=== PATIENT | female | born 1980 | race African-American/Black ===

== ENCOUNTER 2020-04-15 10:43 | Emergency (ER) | payer OTHER ==
[~2020-04-15] VITALS: Ht 170.2 cm; Wt 109.4 kg
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
[2020-04-15] MEDS ORDERED: ORPHENADRINE CITRATE 60 MG/2 ML VIAL. IM ONE (12:30)
[2020-04-15] MEDS ORDERED: KETOROLAC 30 MG/ML VIAL. IM ONE (12:30)
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
[2020-04-15] MEDS ORDERED: ORPHENADRINE CITRATE 60 MG/2 ML VIAL. IV ONE (13:00)
[2020-04-15] MEDS ORDERED: IV NORMAL SALINE 1,000ML 1,000 ML IV ONE (13:00)
[2020-04-15] MEDS ORDERED: KETOROLAC 15 MG/ML VIAL. IVP ONE (13:00)
[2020-04-15 13:11] LABS: BASO % 1 % (0-3); EOS % 1 % (0-3); HEMATOCRIT 39.1 % (36.0-47.0); HEMOGLOBIN 12.9 g/dL (12.0-15.5); LYMPH # 1.1 x10^3/uL (1.0-4.8); LYMPH % 18 % (24-48); MEAN CORPUSCULAR HEMOGLOBIN 30 pg (25-35); MEAN CORPUSCULAR HGB CONC 33 g/dL (31-37); MEAN CORPUSCULAR VOLUME 91 fL (79-100); MONO # 0.5 x10^3/uL (0.0-1.1); MONO % 8 % (0-9); NEUT # 4.6 x10^3uL (1.8-7.7); NEUT % 73 % (31-73); PLATELET COUNT 406 x10^3/uL (140-400); RED BLOOD COUNT 4.28 x10^6/uL (3.50-5.40); RED CELL DISTRIBUTION WIDTH 13.2 % (11.5-14.5); WHITE BLOOD COUNT 6.4 x10^3/uL (4.0-11.0)
[2020-04-15] MEDS ORDERED: CONTRAST GIVEN. MC PRN (13:15)
[2020-04-15] MEDS ORDERED: IOHEXOL 300 MG/ML 75 ML VIAL. IV ONE (13:15)
[2020-04-15 13:18] LABS: CALCIUM 9.1 mg/dL (8.5-10.1); CREATININE 0.7 mg/dL (0.6-1.0); GFR 112.7
[2020-04-15 13:24] LABS: ALBUMIN 3.6 g/dL (3.4-5.0); ALBUMIN/GLOBULIN RATIO 0.8 (1.0-1.7); MAGNESIUM 2.2 mg/dL (1.8-2.4); TOTAL BILIRUBIN 0.2 mg/dL (0.2-1.0); TOTAL PROTEIN 8.4 g/dL (6.4-8.2)
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
[2020-04-15] MEDS ORDERED: AZIT250T6 PO (14:51)
[2020-04-15] MEDS ORDERED: ORPH-16 PO (14:51)
[2020-04-15] MEDS ORDERED: OXYC1TAB15 PO (14:51)
[2020-04-15] MEDS ORDERED: oxyCODONE/APAP 5/325 1 TAB TABLET PO ONE (15:00)
[2020-04-15 15:01] VITALS: BP 158/95
== END 2020-04-15 15:15 | disposition home or self-care (01) ==
LOC: ER 10:43
DX: S16.1XXA Strain of muscle, fascia and tendon at neck level, initial encounter (principal); S29.012A Strain of muscle and tendon of back wall of thorax, initial encounter; J98.4 Other disorders of lung; I10 Essential (primary) hypertension; F17.210 Nicotine dependence, cigarettes, uncomplicated; M25.562 Pain in left knee; M25.561 Pain in right knee; Z20.828 Contact with and (suspected) exposure to other viral communicable diseases; V43.62XA Car passenger injured in collision with other type car in traffic accident, initial encounter; Y93.89 Activity, other specified; Y92.89 Other specified places as the place of occurrence of the external cause; Y99.8 Other external cause status
CPT/HCPCS: 36415; 70450; 71260; 72125; 72128; 73562; 80053; 83735; 85025; 96361; 96374; 96375; 99285; C9803; J1885; J2360; J7030; Q9967; U0003

== ENCOUNTER 2021-09-24 07:00 | Emergency (ER) | payer SELFPAY ==
[~2021-09-24] VITALS: Ht 170.2 cm; Wt 107.5 kg
[~2021-09-24 07:00] MED LIST: AZIT250T6 PO; ORPH-16 PO; OXYC1TAB15 PO
[2021-09-24] MEDS ORDERED: IV NORMAL SALINE 1,000ML 1,000 ML IV SCH (07:30)
--- NOTE | 2021-09-24 07:39 | PHYS DOC ---
Past History Past Medical History: Depression, Hypertension Past Surgical History: Other Additional Past Surgical Histo: Breast reduction Smoking: Less than 1pk/day Alcohol Use: Rarely Drug Use: Methamphetamine Adult General Chief Complaint Chief Complaint: CHEST PAIN HPI HPI Patient is a 41 year old female who presents with complaint of chest pain. The patient states her symptoms started 3 days ago. Notes pain that has been persistent along the left side of her chest underneath her left breast. States that the pain is sharp and intermittent and is typically associated with movement. States that her pain has been associated with brief nausea and occasional sweating. Denies fevers, dizziness, shortness of breath, abdominal pain, or diarrhea. Patient states that she recently had COVID infection 2 months ago. States that since then she has been having congestion and continued occasional cough. Patient has not taken any medications for symptoms at this time. States that her pain worsens with deep breath. The patient was seen in the emergency department on April 15, 2020. The patient at that time had a CT scan that showed a left hilar mass versus consolidation. Differential included pulmonary contusion, pneumonia, and possible hilar mass. The patient states that she did have repeat imaging performed at a clinic in [place] after this visit. She states however that she did not speak with anybody regarding results but assumed that they did not find any concerning findings as she was not called after that visit. Review of Systems Review of Systems Constitutional: Diaphoresis, denies fever or chills [] Eyes: Denies change in visual acuity, redness, or eye pain [] HENT: Congestion, denies sore throat [] Respiratory: Cough, denies shortness of breath [] Cardiovascular: Chest pain, edema [] GI: Nausea, denies abdominal pain, vomiting, bloody stools or diarrhea [] : Denies dysuria or hematuria [] Musculoskeletal: Denies back pain or joint pain [] Integument: Denies rash or skin lesions [] Neurologic: Denies headache, focal weakness or sensory changes [] All other systems were reviewed and found to be within normal limits, except as documented in this note. Current Medications Current Medications Current Medications Medications (Trade) Dose Ordered Sig/Ramos Start Time Stop Time Status Last Admin Dose Admin Sodium Chloride 1,000 ml @ 1,000 mls/hr Q1H 09/24/21 07:30 09/24/21 08:29 Allergies Allergies Allergies Coded Allergies Type Severity Reaction Last Updated Verified No Known Drug Allergies 09/24/21 No Physical Exam Physical Exam Constitutional: Alert, obese, afebrile, no acute distress. [] HENT: Normocephalic, atraumatic, bilateral external ears normal, oropharynx moist, no oral exudates, nose normal. [] Eyes: PERRLA, EOMI, conjunctiva normal, no discharge. [] Neck: Normal range of motion, no tenderness, supple, no stridor. [] Cardiovascular:Heart rate regular rhythm, no murmur [] Lungs & Thorax: Bilateral breath sounds clear to auscultation, tenderness to palpation along left anterior inferior and parasternal chest wall, pain reproducible to palpation. [] Abdomen: Bowel sounds normal, soft, no tenderness, no masses, no pulsatile masses. [] Skin: Warm, dry, no erythema, no rash. [] Back: No tenderness, no CVA tenderness. [] Extremities: No tenderness, no cyanosis, no clubbing, ROM intact, no edema. [] Neurologic: Alert and oriented X 3, normal motor function, normal sensory function, no focal deficits noted. [] Current Patient Data Vital Signs Vital Signs Date Time Temp Pulse Resp B/P (MAP) Pulse Ox O2 Delivery O2 Flow Rate FiO2 09/24/21 07:05 98.0 104 18 154/127 (136) 98 Room Air Lab Results Laboratory Tests Test 09/24/21 07:43 09/24/21 08:43 09/24/21 09:44 White Blood Count 3.5 x10^3/uL Red Blood Count 3.88 x10^6/uL Hemoglobin 11.6 g/dL Hematocrit 35.0 % Mean Corpuscular Volume 90 fL Mean Corpuscular Hemoglobin 30 pg Mean Corpuscular Hemoglobin Concent 33 g/dL Red Cell Distribution Width 15.0 % Platelet Count 291 x10^3/uL Neutrophils (%) (Auto) 42 % Lymphocytes (%) (Auto) 39 % Monocytes (%) (Auto) 11 % Eosinophils (%) (Auto) 8 % Basophils (%) (Auto) 1 % Neutrophils # (Auto) 1.5 x10^3uL Lymphocytes # (Auto) 1.4 x10^3/uL Monocytes # (Auto) 0.4 x10^3/uL Eosinophils # (Auto) 0.3 x10^3/uL Basophils # (Auto) 0.0 x10^3/uL D-Dimer (Vicky) 0.45 mg/L Sodium Level mmol/L Potassium Level mmol/L Chloride Level mmol/L Carbon Dioxide Level 23 mmol/L Anion Gap 15 mmol/L Blood Urea Nitrogen 6 mg/dL Creatinine 0.6 mg/dL Estimated GFR (Cockcroft-Gault) 133.3 BUN/Creatinine Ratio 10 Glucose Level 96 mg/dL mg/dL Calcium Level 8.8 mg/dL Magnesium Level 1.9 mg/dL Total Bilirubin 0.3 mg/dL Aspartate Amino Transf (AST/SGOT) 17 U/L Alanine Aminotransferase (ALT/SGPT) 27 U/L Alkaline Phosphatase 62 U/L Troponin I High Sensitivity 9 ng/L [id number] Natriuretic Peptide 136 pg/mL Total Protein 6.6 g/dL Albumin 3.2 g/dL Albumin/Globulin Ratio 0.9 Urine Collection Type Unknown Urine Color Yellow Urine Clarity Hazy Urine pH 6.5 Urine Specific [place] 1.020 Urine Protein Neg Urine Glucose (UA) Neg mg/dL Urine Ketones (Stick) Neg mg/dL Urine Blood Trace Urine Nitrite Neg Urine Bilirubin Neg Urine Urobilinogen Dipstick 0.2 mg/dL Urine Leukocyte Esterase Neg Urine RBC Occ /HPF Urine WBC Occ /HPF Urine Squamous Epithelial Cells Many /LPF Urine Transitional Epithelial Cells /LPF Urine Renal Epithelial Cells /LPF Urine Bacteria Few /HPF Urine Mucus Mod /LPF Urine Test Negative Urine Opiates Screen Neg Urine Methadone Screen Neg Urine Barbiturates Neg Urine Phencyclidine Screen Neg Urine Amphetamine/Methamphetamine Pos Urine Benzodiazepines Screen Neg Urine Cocaine Screen Neg Urine Cannabinoids Screen Neg Urine Ethyl Alcohol Neg Bedside Hemoglobin gm/dL Bedside Hematocrit % Bedside Sodium 140 mmol/L Bedside Potassium 3.8 mmol/L Bedside Chloride 106 mmol/L Bedside Total CO2 mmol/L Bedside Blood Urea Nitrogen mg/dL Bedside Creatinine mg/dL Bedside Ionized Calcium (Srikanth) mmol/L Current Medications Medications (Trade) Dose Ordered Sig/Ramos Route PRN Reason Start Time Stop Time Status Last Admin Dose Admin Sodium Chloride 1,000 ml @ 1,000 mls/hr Q1H IV 09/24/21 07:30 09/24/21 08:29 DC 09/24/21 07:52 Acetaminophen (Tylenol) 650 mg 1X ONCE PO 09/24/21 10:15 09/24/21 10:16 DC 09/24/21 10:05 Acetaminophen (Tylenol) 325 mg STK-MED ONCE PO 09/24/21 10:03 09/24/21 10:04 DC Furosemide (Lasix) 40 mg 1X ONCE PO 09/24/21 10:15 09/24/21 10:16 UNV 09/24/21 10:10 EKG EKG Interpreted by me: Heart rate 88, sinus rhythm, normal intervals, normal axis, no acute ST/T wave abnormalities present [] Radiology/Procedures Radiology/[place] [address] IMAGING REPORT Signed PATIENT: LAINEY SCHUMACHER ACCOUNT: [id number] : 1980 LOCATION: ER AGE: 41 SEX: F EXAM STATUS: REG ER ORD. PHYSICIAN: NANCY IBARRA MD REASON: chest pain PROCEDURE: CHEST PA & LATERAL EXAMINATION: XR CHEST 2V CLINICAL HISTORY: Chest pain. EXAM DATE/TIME: 09/24/2021 7:28 AM COMPARISON: None FINDINGS: Lines, Tubes, and Devices: None. Cardiomediastinal Silhouette: Within normal limits. Lungs and Pleura: No evidence of focal airspace consolidation or pleural effusion. Pulmonary vasculature unremarkable. Bones and Soft Tissues: No acute osseous abnormality. Surgical clips projected over the bilateral breasts. IMPRESSION: No evidence of acute cardiopulmonary abnormality. Electronically signed by: Manav Ramirez DO (09/24/2021 7:44 AM) [facility] DICTATED AND SIGNED BY: MANAV RAMIREZ DO DATE: 09/24/21 0743 CC: NANCY IBARRA MD; PCP,NO ~ [] Heart Score C/O Chest Pain: Yes HEART Score for Chest Pain: HEART Score for Chest Pain Response (Comments) Value History Slighlty/Non-Suspicious 0 ECG Normal 0 Age < 45 0 Risk Factors >3 Risk Factors or Hx CAD 2 Troponin < Normal Limit 0 Total 2 Risk Factors: Risk Factors: DM, Current or recent (<one month) smoker, HTN, HLP, family history of CAD, obesity. Risk Scores: Risk Factors: DM, Current or recent (<one month) smoker, HTN, HLP, family history of CAD, obesity. Course & Med Decision Making Course & Med Decision Making Pertinent Labs and Imaging studies reviewed. (See chart for details) Blood work and chest x-ray were reviewed. Patient had a mildly elevated BNP level, normal troponin level, and normal D-dimer level. Electrolytes, kidney function, and cell counts unremarkable. The patient was given Tylenol and started on Lasix for complaints of swelling and pain in the lower extremities. Patient will be referred to cardiology services for outpatient follow-up to evaluate for cardiomyopathy as a possible cause for the patient's leg swelling s ymptoms. Patient's work-up otherwise shows no evidence of pulmonary edema or myocardial ischemia. Condition is stable and patient is appropriate for discharge at this time. Recommend follow-up with cardiology in the next 3 to 5 days for reevaluation and return to the emergency department for any worsening symptoms. Prescribed daily Lasix for treatment of lower extremity edema s ymptoms. Patient voiced understanding and in agreement with treatment plan. [] Dragon Disclaimer Dragon Disclaimer This electronic medical record was generated, in whole or in part, using a voice recognition dictation system. Departure Departure: Impression: Primary Impression: Chest pain Additional Impression: Peripheral edema Disposition: HOME / SELF CARE / HOMELESS Condition: STABLE Referrals: PCP,NO (PCP) HUNG THACKER MD Patient Instructions: Chest Pain (Nonspecific), Edema Additional Instructions: Follow-up with cardiology in the next 3 to 5 days for reevaluation. Return to the emergency department for any worsening symptoms. Scripts Potassium Chloride (POTASSIUM CHLORIDE ) 20 Meq Tablet.er 20 MEQ PO DAILY for SUPPLEMENT for 15 Days, #15 TAB Prov: NANCY IBARRA MD 09/24/21 Furosemide (LASIX) 40 Mg Tablet 1 TAB PO DAILY for 15 Days, #15 TAB 0 Refills Prov: NANCY IBARRA MD 09/24/21 Problem Qualifiers Primary Impression: Chest pain Chest pain type: unspecified Qualified Codes: R07.9 - Chest pain, unspecified NANCY IBARRA MD September 24, 2021 07:39
--- NOTE | 2021-09-24 07:47 | RAD ---
EXAMINATION: XR CHEST 2V CLINICAL HISTORY: Chest pain. EXAM DATE/TIME: 09/24/2021 7:28 AM COMPARISON: None FINDINGS: Lines, Tubes, and Devices: None. Cardiomediastinal Silhouette: Within normal limits. Lungs and Pleura: No evidence of focal airspace consolidation or pleural effusion. Pulmonary vasculat ure unremarkable. Bones and Soft Tissues: No acute osseous abnormality. Surgical clips projected over the bilateral ursula asts. IMPRESSION: No evidence of acute cardiopulmonary abnormality. Electronically signed by: Manav Darden DO (09/24/2021 7:44 AM) [facility]
[2021-09-24 07:59] LABS: BASO % 1 % (0-3); EOS # 0.3 x10^3/uL (0.0-0.7); EOS % 8 % (0-3); HEMOGLOBIN 11.6 g/dL (12.0-15.5); LYMPH # 1.4 x10^3/uL (1.0-4.8); LYMPH % 39 % (24-48); MEAN CORPUSCULAR HEMOGLOBIN 30 pg (25-35); MEAN CORPUSCULAR HGB CONC 33 g/dL (31-37); MEAN CORPUSCULAR VOLUME 90 fL (79-100); MONO # 0.4 x10^3/uL (0.0-1.1); MONO % 11 % (0-9); NEUT # 1.5 x10^3uL (1.8-7.7); NEUT % 42 % (31-73); PLATELET COUNT 291 x10^3/uL (140-400); RED BLOOD COUNT 3.88 x10^6/uL (3.50-5.40); WHITE BLOOD COUNT 3.5 x10^3/uL (4.0-11.0)
[2021-09-24 08:27] LABS: ALBUMIN 3.2 g/dL (3.4-5.0); ALBUMIN/GLOBULIN RATIO 0.9 (1.0-1.7); ALK PHOS 62 U/L (46-116); ALT (SGPT) 27 U/L (14-59); AST (SGOT) 17 U/L (15-37); BLOOD UREA NITROGEN 6 mg/dL (7-20); BUN/CREATININE RATIO 10 (6-20); CALCIUM 8.8 mg/dL (8.5-10.1); CARBON DIOXIDE 23 mmol/L (21-32); CREATININE 0.6 mg/dL (0.6-1.0); GFR 133.3; GLUCOSE 96 mg/dL (70-99); MAGNESIUM 1.9 mg/dL (1.8-2.4); TOTAL BILIRUBIN 0.3 mg/dL (0.2-1.0); TOTAL PROTEIN 6.6 g/dL (6.4-8.2)
[2021-09-24 09:31] LABS: COLOR,URINE YELLOW
[2021-09-24 09:32] LABS: BACTERIA,URINE FEW /HPF (0-FEW); CLARITY,URINE HAZY; GLUCOSE,URINE NEG (NEG); NITRITE,URINE NEG (NEG); RBC,URINE OCC /HPF (0-2); SQUAMOUS EPITHELIAL CELL,UR MANY /LPF; UROBILINOGEN,URINE 0.2 mg/dL (0.2 mg/dL); WBC,URINE OCC /HPF (0-4)
[2021-09-24 09:35] LABS: U PREG PATIENT NEGATIVE (NEG)
[2021-09-24 09:55] LABS: BARBITURATES NEG (NEG); BENZODIAZEPINES NEG (NEG); CANNABINOIDS NEG (NEG); COCAINE NEG (NEG); METHADONE NEG (NEG); OPIATES NEG (NEG); PHENCYCLIDINE NEG (NEG)
[2021-09-24 09:57] LABS: AMPHETAMINE/METHAMPHETAMINE POS (NEG)
[2021-09-24] MEDS ORDERED: ACETAMINOPHEN 325 MG TABLET PO ONE ×2 (10:03→10:15)
[2021-09-24 10:14] LABS: POTASSIUM ISTAT 3.8 mmol/L (3.5-5.0); SODIUM ISTAT 140 mmol/L (135-145)
[2021-09-24] MEDS ORDERED: FUROSEMIDE 40 MG TABLET PO ONE (10:15)
[2021-09-24] MEDS ORDERED: FURO-68 PO (10:25)
[2021-09-24] MEDS ORDERED: POTA20TA4 PO (10:25)
[2021-09-24 10:37] VITALS: BP 140/73
== END 2021-09-24 10:39 | disposition home or self-care (01) ==
LOC: ER 07:00
DX: R07.89 Other chest pain (principal); R60.9 Edema, unspecified; F17.210 Nicotine dependence, cigarettes, uncomplicated; F12.10 Cannabis abuse, uncomplicated; I10 Essential (primary) hypertension
CPT/HCPCS: 36415; 71046; 80047; 80053; 80307; 81001; 81025; 83735; 83880; 84484; 85025; 85379; 93005; 96360; 96361; 99285; J7030